=== PATIENT | male | born 1970 | race Caucasian/White ===

== ENCOUNTER 2019-07-02 07:43 | Emergency (ER) | payer OTHER ==
[~2019-07-02] VITALS: Ht 177.8 cm; Wt 110.0 kg
[~2019-07-02 07:43] MED LIST: LOSA50TA14 PO; PANT40TA5 PO
--- NOTE | 2019-07-02 07:53 | NUR ---
PT AMBULATED BACK TO THE ROOM W/ A STEADY GAIT.
--- NOTE | 2019-07-02 07:59 | NUR ---
IN ROOM FOR ED EVAL.
--- NOTE | 2019-07-02 08:16 | NUR ---
THIS IS A 49 YO M W/ C/O DIZZINESS, ALLAN AND 1 EPISODE OF VOMITING THIS MORNING. PT REPORTS TAKING 25MG OF MECLIZINE AT 0630 THIS MORNING WHICH HELPED W/ HIS NAUSEA. 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 PT IS HYPERTENSIVE, OTHER VS WDL. PIV STARTED AND LABS DRAWN. RAD IN ROOM FOR CXR. PT IS RESTING ON GURNEY W/ CALL LIGHT IN REACH. AWAITING CTA.
--- NOTE | 2019-07-02 08:17 | NUR ---
PT FACE SYMMETRICAL, TONGUE MIDLINE, CONVERSING W/O DIFFICULTY. STRONG IN ALL EXTREMITIES. DENIES WEAKNESS, NUMBNESS, TINGLING.
[2019-07-02] MEDS ORDERED: FLUT1DIS3 INH (08:21)
[2019-07-02] MEDS ORDERED: DILT120C64 PO (08:21)
[2019-07-02 08:23] LABS: BASOPHILS # (AUTO) 0.02 x10^3/uL (0-0.1); BASOPHILS % (AUTO) 0 % (0-1); EOSINOPHILS # (AUTO) 0.14 x10^3/uL (0-0.4); EOSINOPHILS % (AUTO) 2 % (1-7); LYMPHOCYTES # (AUTO) 1.14 x10^3/uL (1-3.4); LYMPHOCYTES % (AUTO) 16 % (22-44); MD NO; MEAN CORPUSCULAR HEMOGLOBIN 30.6 pg (27.5-34.5); MEAN CORPUSCULAR HGB CONC 33.6 g/dL (33.2-36.2); MEAN CORPUSCULAR VOLUME 91.2 fL (81-97); MEAN PLATELET VOLUME 7.4 fL (7.4-10.4); MONOCYTES # (AUTO) 0.41 x10^3/uL (0.2-0.8); MONOCYTES % (AUTO) 6 % (2-9); NEUTROPHILS % (AUTO) 76 % (42-75); PLATELET COUNT 194 x10^3/uL (130-400); RED BLOOD COUNT 5.02 x10^6/uL (4.38-5.82); RED CELL DISTRIBUTION WIDTH 13.6 % (9.4-14.8)
[2019-07-02 08:35] LABS: ALANINE AMINOTRANSFERASE 58 U/L (12-78); ALBUMIN 4.1 g/dL (3.4-5.0); ANION GAP 7 mmol/L (5-15); CALCIUM 9.1 mg/dL (8.5-10.1); CHLORIDE 105 mmol/L (98-107); CREATININE 1.17 mg/dL (0.7-1.3)
[2019-07-02] MEDS ORDERED: CLOP75TA PO (08:38)
[2019-07-02 08:39] LABS: ALKALINE PHOSPHATASE 106 U/L (45-117); BILIRUBIN,TOTAL 0.4 mg/dL (0.2-1.0); TOTAL PROTEIN 8.1 g/dL (6.4-8.2); TROPONIN I < 0.015 ng/mL (0.000-0.045)
[2019-07-02] MEDS ORDERED: ACYC-114 PO (08:40)
[2019-07-02] MEDS ORDERED: ATOR40TA78 PO (08:40)
--- NOTE | 2019-07-02 08:51 | NUR ---
PT RESTING ON GURNEY, CONNECTED TO MONITORING. VSS STABLE, AWAITING CTA.
--- NOTE | 2019-07-02 08:53 | NUR ---
MED REC DONE.
[2019-07-02] MEDS ORDERED: ASPI-496 PO (08:54)
--- NOTE | 2019-07-02 09:01 | NUR ---
PT TO RAD.
--- NOTE | 2019-07-02 09:18 | NUR ---
PT BACK FROM RAD.
[2019-07-02 09:29] VITALS: BP 142/88
[2019-07-02] MEDS ORDERED: OMNIPAQUE 350 MG/ML, 75ML BOTTLE ONE (09:31)
--- NOTE | 2019-07-02 09:42 | NUR ---
[place] PH[place]. BIJAN CARRENO. AWAITING RESULTS.
--- NOTE | 2019-07-02 09:46 | NUR ---
ALL TESTS RESULTED. PT IS UP FOR RECHECK AT THIS TIME.
--- NOTE | 2019-07-02 10:12 | NUR ---
Patient given discharge instructions and they have confirmed that they understand the instructions. Patient ambulatory with steady gait.
== END 2019-07-02 10:14 | disposition home or self-care (01) ==
LOC: ED 08:11
DX: R42 Dizziness and giddiness (principal); I45.9 Conduction disorder, unspecified; J45.909 Unspecified asthma, uncomplicated; I10 Essential (primary) hypertension; E78.00 Pure hypercholesterolemia, unspecified
CPT/HCPCS: 36415; 70450; 70496; 70498; 71045; 80053; 83880; 84484; 85025; 93005; 99285; Q9967